=== PATIENT | female | born 1980 | race Caucasian/White ===

== ENCOUNTER 2016-03-18 08:39 | Emergency (ER) | payer OTHER ==
[2016-03-18] MEDS ORDERED: IBUPROFEN 800 MG TAB As Ordered ONE (09:21)
--- NOTE | 2016-03-18 10:27 | REP ---
Cervical spine series: Eight views. History: Trauma. Findings: Lateral views done in flexion/extension and neutral position demonstrate three old ossific densities in the posterior spinal ligaments dorsal to the spinous processes. No fracture or subluxation is seen. No instability noted on flexion/extension views. Vertebral body heights are preserved. Alignment is normal. There is discogenic calcification at the C5-6 disc level consistent with early degenerative disc disease. AP and open mouth odontoid views are unremarkable. Oblique radiographs demonstrate intact neural foramina bilaterally at each cervical level and normally aligned facets. Swimmer's lateral view shows no additional abnormality. Impression: No traumatic abnormality noted. Early degenerative disc changes at C5-6. CT scanning is more sensitive than plain radiography for fracture and is the preferred imaging modality in the adult trauma setting. Signed by Edin Alicia MD 03/18/2016 10:38 A
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
== END 2016-03-18 10:59 | disposition home or self-care (01) ==
LOC: M ED 08:39
DX: S13.4XXA Sprain of ligaments of cervical spine, initial encounter (principal); V48.5XXA Car driver injured in noncollision transport accident in traffic accident, initial encounter; Y92.410 Unspecified street and highway as the place of occurrence of the external cause; Y93.89 Activity, other specified; Y99.8 Other external cause status; E11.9 Type 2 diabetes mellitus without complications; I10 Essential (primary) hypertension; Z79.84 Long term (current) use of oral hypoglycemic drugs; Z79.899 Other long term (current) drug therapy

== ENCOUNTER → 2016-07-05 | Outpatient (CLI) | payer OTHER ==
[2016-07-05 12:52] LABS: BASO % 0.3 % (0.0-1.0); EOS # 0.2 K/mm3 (0.0-0.50); EOS % 3.1 % (0.0-3.0); LARGE UNSTAINED CELL # 0.2 K/mm3 (0.0-0.4); LARGE UNSTAINED CELL % 2.2 % (0.0-4.0); LYMPH # 2.5 K/mm3 (1.5-4.5); LYMPH % 28.1 % (24.0-44.0); MEAN CORPUSCULAR HEMOGLOBIN 29.1 pg (27.0-33.0); MEAN CORPUSCULAR HGB CONC 33.9 g/dl (32.0-36.5); MEAN CORPUSCULAR VOLUME 85.9 fl (80.0-96.0); MONO # 0.4 K/mm3 (0.0-0.8); MONO % 4.9 % (0.0-5.0); NEUTROPHILS % 61.3 % (36.0-66.0); PLATELET COUNT, AUTOMATED 285 k/mm3 (150-450); RED CELL DISTRIBUTION WIDTH 13.1 % (11.5-14.5); WHITE BLOOD COUNT 8.1 K/mm3 (4.0-10.0)
== END ==
LOC: M LAB 12:14
PROVIDERS: ATTEND Advanced Practice Midwife
DX: Z36 Encounter for antenatal screening of mother (principal); Z3A.00 Weeks of gestation of pregnancy not specified

== ENCOUNTER → 2016-07-19 | Outpatient (CLI) | payer OTHER ==
[2016-07-19 11:15] LABS: ALT/SGPT 22 U/L (12-78); AST/SGOT 6 U/L (15-37); BILIRUBIN,TOTAL 0.4 MG/DL (0.2-1.0); CREATININE FOR GFR 0.51 MG/DL (0.55-1.02); GLOMERULAR FILTRATION RATE > 60.0 (>60); URIC ACID 2.7 MG/DL (2.6-6.0)
== END ==
LOC: M LAB 09:39
PROVIDERS: ATTEND Advanced Practice Midwife
DX: O10.011 Pre-existing essential hypertension complicating pregnancy, first trimester (principal); Z36 Encounter for antenatal screening of mother; Z3A.00 Weeks of gestation of pregnancy not specified

== ENCOUNTER → 2016-08-03 | Outpatient (CLI) | payer OTHER | LOC: M SMT 10:54 | PROVIDERS: ATTEND Specialist | DX: O24.111 Pre-existing type 2 diabetes mellitus, in pregnancy, first trimester (principal); Z36 Encounter for antenatal screening of mother; Z3A.00 Weeks of gestation of pregnancy not specified ==

== ENCOUNTER → 2016-08-27 | Outpatient (REF) | payer OTHER | LOC: M LAB REF 11:33 | PROVIDERS: ATTEND Physician Assistant Medical | DX: R30.0 Dysuria (principal) ==

== ENCOUNTER → 2016-09-13 | Outpatient (CLI) | payer MEDICAID, OTHER ==
--- NOTE | 2016-09-13 11:11 | REP ---
OB ULTRASOUND: Real-time sonographic evaluation of the gravid uterus is performed. There is a single living intrauterine gestation with an estimated gestational age of 19 weeks 0 days based on the LMP with EDC 02/07/2017. Today's measurements indicate appropriate growth. Biometry and Growth: BPD 44 mm = 19 weeks 2 days, 57th percentile HC 163 mm = 19 weeks 0 days, 51st percentile AC 141 mm = 19 weeks 3 days, 61st percentile FL 31 mm = 19 weeks 4 days, 65th percentile HC/AC ratio 1.15 within normal range. Estimated weight 296 grams, 66th percentile. SEEN/GROSSLY UNREMARKABLE Lateral ventricles Yes Posterior fossa Yes Upper lip Yes Four-chamber heart Yes LVOT No RVOT No Stomach Yes Cord insertion Yes Three vessel cord Yes Kidneys Yes Bladder Yes Spine No Cervical length: The cervix is closed and measures 5.1 cm in length. heart rate: 160 beats per minute. position: Variable. Placenta: Anterior and grade 0 with no previa or abruption. Amniotic fluid: Within normal limits. Signed by Jed Myers MD 09/13/2016 01:27 P
== END ==
LOC: M SMT 09:38
PROVIDERS: ATTEND Specialist
DX: O24.111 Pre-existing type 2 diabetes mellitus, in pregnancy, first trimester (principal); Z36 Encounter for antenatal screening of mother; Z3A.19 19 weeks gestation of pregnancy

== ENCOUNTER → 2016-10-11 | Outpatient (CLI) | payer OTHER ==
--- NOTE | 2016-10-11 21:54 | REP ---
OB ULTRASOUND: Real-time sonographic evaluation of the gravid uterus is performed. There is a single intrauterine gestation with an estimated gestational age of 23 weeks, EDC 02/07/2017. Today's measurements indicate appropriate growth. BPD 58 mm = 23 weeks 5 days, 70th percentile HC 222 mm = 24 weeks 2 days, 76th percentile AC 180 mm = 22 weeks 6 days, 47th percentile FL 42 mm = 23 weeks 5 days, 7th percentile HC/AC ratio 1.23, is slightly above normal range of 1.03 to 1.22. Estimated weight 586 grams, 56th percentile. Cervix is closed and measures 5.9 cm in length. heart rate 153 beats per minute. SEEN/GROSSLY UNREMARKABLE Lateral ventricles yes Posterior fossa no Upper lip no Four-chamber heart no LVOT no RVOT no Stomach yes Cord insertion no Three vessel cord no Kidneys yes Bladder yes Spine yes position: Vertex. Placenta: Anterior and grade 1 with no previa or abruption. Amniotic fluid: Within normal limits. Signed by Jed Myers MD 10/12/2016 12:36 P
== END ==
LOC: M RAD 17:53
PROVIDERS: ATTEND Specialist
DX: Z36 Encounter for antenatal screening of mother (principal); Z3A.23 23 weeks gestation of pregnancy

== ENCOUNTER → 2016-11-10 | Outpatient (CLI) | payer OTHER ==
--- NOTE | 2016-11-10 19:25 | REP ---
Obstetric ultrasound for anatomy: Comparisons are 10/11/2016 and 09/13/2016. There is a single intrauterine gestation in a transverse lie with the head to the maternal left. There is movement and cardiac activity, the heart rate is 150 beats per minute. The placenta is anterior. There is no placenta previa or abruptio. Placenta is grade 1. Subjectively the amniotic fluid volume is normal. The amniotic fluid index is 18.8 (9.5 - 22.7). The cervix measures 5.2 cm length. Maternal adnexa and cul-de-sac are unremarkable. By today's ultrasound gestational age is 29 weeks 2 days with an SIDNEY of 01/24/2017. Based on the first ultrasound gestational age is 27 weeks 3 days and by LMP 27 weeks 2 days. weight is 1402 grams (3 pounds, 1 ounce). This is greater than the 97 percentile for 27 weeks 2 days. Umbilical artery Doppler assessment: SD ratio 2.83. Resistive index 0.65. Diastolic flow velocity 14.2 cm/sec. These values are in their normal ranges. The following anatomic structures are identified and are unremarkable: Cranium, choroid plexus, cavum septum pellucidum, cerebellum, posterior fossa, lungs, right ventricular outflow tract, diaphragm, stomach, cord insertion, kidneys, bladder, spine and upper lower extremities. Suboptimally demonstrated on the study today are the facial profile, four-chamber view of the heart and the left ventricular cardiac outflow tract and three-vessel cord. On 09/13/2016. The face, facial profile and upper lip are adequately demonstrated and unremarkable. On 09/13/2016. The four-chamber view of the heart was adequately demonstrated and unremarkable. On 09/13/2016. The three-vessel cord was adequately demonstrated are unremarkable. The left ventricular outflow tract is not optimally demonstrated in the study. A followup study dedicated to this structure might be considered. Signed by Jed Christianson MD 11/10/2016 07:17 P
== END ==
LOC: M RAD 17:04
PROVIDERS: ATTEND Specialist
DX: O24.12 Pre-existing type 2 diabetes mellitus, in childbirth (principal); E11.9 Type 2 diabetes mellitus without complications; Z3A.29 29 weeks gestation of pregnancy

== ENCOUNTER → 2016-11-16 | Outpatient (CLI) | payer OTHER ==
[2016-11-16 20:29] LABS: MEAN CORPUSCULAR HEMOGLOBIN 30.7 pg (27.0-33.0); MEAN CORPUSCULAR HGB CONC 35.9 g/dl (32.0-36.5); MEAN CORPUSCULAR VOLUME 85.4 fl (80.0-96.0); RED CELL DISTRIBUTION WIDTH 13.4 % (11.5-14.5); WHITE BLOOD COUNT 9.7 K/mm3 (4.0-10.0)
== END ==
LOC: M SMT 15:11
PROVIDERS: ATTEND Specialist
DX: O24.112 Pre-existing type 2 diabetes mellitus, in pregnancy, second trimester (principal)

== ENCOUNTER 2017-01-18 00:19 | Inpatient (IN) | payer OTHER ==
[~2017-01-18] VITALS: Ht 170.2 cm; Wt 142.0 kg
[2017-01-18] VITALS (72 sets, daily range): BP systolic 71–182; BP diastolic 43–90
[2017-01-18 01:54] LABS: MEAN CORPUSCULAR HEMOGLOBIN 28.5 pg (27.0-33.0); MEAN CORPUSCULAR HGB CONC 34.4 g/dl (32.0-36.5); MEAN CORPUSCULAR VOLUME 82.9 fl (80.0-96.0); PLATELET COUNT, AUTOMATED 247 10^3/uL (150-450); RED CELL DISTRIBUTION WIDTH 13.3 % (11.5-14.5); WHITE BLOOD COUNT 9.3 10^3/uL (4.0-10.0)
[2017-01-18] MEDS ORDERED: INSULIN HUMAN REGULAR 100 UNITS in NS 99 ML IV SCH ×5 (02:16→10:00)
[2017-01-18] MEDS ORDERED: PENICILLIN G POTASSIUM IV 5 MU in D5W MINI-BAG PLUS 100 ML IV STA (02:16)
[2017-01-18] MEDS ORDERED: LR 1,000 ML IV SCH (02:16)
[2017-01-18] MEDS ORDERED: LACTATED RINGER'S 1000 ML IV STA (02:16)
[2017-01-18] MEDS: NS 1,000 ML IV SCH ×3 (03:03→16:54)
[2017-01-18] MEDS ORDERED: miSOPROStol 50 MCG 1/2 TAB (S0191) SL ONE (03:15)
[2017-01-18] MEDS ORDERED: CALCIUM CARBONATE 500 MG CHEW U/D PO ONE (03:15)
[2017-01-18] MEDS ORDERED: ZYRT10CA PO (07:25)
[2017-01-18] MEDS ORDERED: PRENTAB9 PO (07:25)
[2017-01-18] MEDS ORDERED: INSUR SC (07:25)
[2017-01-18] MEDS ORDERED: SING10TA32 PO (07:25)
[2017-01-18] MEDS ORDERED: INSUN SC (07:25)
[2017-01-18] MEDS ORDERED: LABE20TAB PO (07:25)
[2017-01-18] MEDS ORDERED: miSOPROStol 50 MCG 1/2 TAB (S0191) PO ONE (08:00)
[2017-01-18] MEDS: PENICILLIN G POTASSIUM IV 2.5 MU in APPROPRIATE DILUENT 1 EA IV SCH ×4 (08:00→18:55)
[2017-01-18] MEDS: INSULIN IV RATE CHANGE DOCUMENTATION ML/HR XX SCH ×5 (08:31→18:32)
[2017-01-18] MEDS ORDERED: FENTANYL 2MCG/ML ROPIVACAINE 0.2% IN 0.9% NACL 200ML IVBAG As Ordered ONE (09:36)
[2017-01-18] MEDS ORDERED: ePHEDrine SULFATE 25 MG/5 ML(5MG/ML) SYRINGE IV PRN (11:00)
[2017-01-18] MEDS ORDERED: NALOXONE INJ 0.4 MG/1 ML VIAL (J2310) IV PRN (11:00)
[2017-01-18] MEDS ORDERED: ONDANSETRON 4MG/2ML VIAL (J2405) IV PRN ×2 (11:00→21:45)
[2017-01-18] MEDS ORDERED: REFRIGERATOR IV KEYS XX PRN (11:00)
[2017-01-18] MEDS ORDERED: EPIDURAL COMMENT XX SCH (11:00)
[2017-01-18] MEDS ORDERED: diphenhydrAMINE INJ 50MG/ML VIAL (J1200) IV PRN (11:00)
[2017-01-18] MEDS ORDERED: FENTANYL/ROPIVACAINE/NACL BAG 200 ML EPIDURAL SCH (11:00)
[2017-01-18] MEDS ORDERED: EPIDURAL/PCA KEYS XX PRN (11:00)
[2017-01-18] MEDS ORDERED: OXYTOCIN DRIP 30 UNITS in APPROPRIATE DILUENT 1 EA IV SCH (11:15)
[2017-01-18] MEDS: LABETALOL 200 MG TAB PO SCH (21:00)
[2017-01-18] MEDS ORDERED: RHOGAM 300 MCG (1500 IU) INJ (J2790) IM SCH (21:45)
[2017-01-18] MEDS ORDERED: METHYLERGONOVINE MALEATE 0.2 MG TAB PO PRN (21:45)
[2017-01-18] MEDS ORDERED: DOCUSATE SODIUM 100 MG CAP PO PRN (21:45)
[2017-01-18] MEDS ORDERED: DIBUCAINE 1% OINTMENT 30GM TOP PRN (21:45)
[2017-01-18] MEDS ORDERED: OXYTOCIN DRIP 30 UNITS in APPROPRIATE DILUENT 1 EA IV ONE (21:45)
[2017-01-18] MEDS ORDERED: MEASLES,MUMPS,RUBELLA VACCINE INJ (MMR-II) (90707) SC SCH (21:45)
[2017-01-19] MEDS: LABETALOL 200 MG TAB PO SCH ×3 (00:07→23:47)
[2017-01-19 02:00] VITALS: BP 103/53
[2017-01-19] MEDS: IBUPROFEN 800 MG TAB PO PRN ×3 (05:12→18:45)
[2017-01-19 06:00] VITALS: BP 97/55
[2017-01-19] MEDS: metFORMIN 850 MG TAB PO SCH ×2 (08:32→18:48)
[2017-01-19] MEDS: PRENATAL VITAMINS CHEWABLE TABLET PO SCH (08:32)
[2017-01-19] MEDS: MONTELUKAST 10 MG TAB PO SCH (08:32)
[2017-01-19 11:33] VITALS: BP 131/70
--- NOTE | 2017-01-19 11:35 | DN ---
DATE OF DELIVERY: 01/18/2017 PREDELIVERY DIAGNOSES: 37 weeks gestation, type 2 gestational diabetes. POSTDELIVERY DIAGNOSES: 37 weeks gestation, type 2 gestational diabetes. PROCEDURE: Spontaneous vaginal delivery. CAGE CASHIER: Claudio Fay MD ANESTHESIA: Epidural. ESTIMATED BLOOD LOSS: 300 mL. FINDINGS: 9 pound, 14 ounce female . scores of 7 and 9. DELIVERY SUMMARY: After a short second stage, the patient had spontaneous delivery of a 9 pound 14 ounce female infant with scores of 7 and 9, under epidural anesthesia. There was no nuchal cord. The shoulders delivered with ease. The infant was handed to the mother and cried spontaneously. The cord was doubly clamped and cut. Placenta delivered spontaneously and appeared to be intact. The patient received IV pitocin immediately after delivery of the placenta. There were no vaginal lacerations present. Sponge counts were correct.
[2017-01-19] MEDS: ACETAMINOPHEN 500 MG TAB PO PRN ×2 (11:58→18:48)
[2017-01-19 13:57] VITALS: BP 138/66
[2017-01-19] MEDS: MORPHINE 2 MG/ML 1ML SYRINGE IV PRN ×2 (14:19→16:23)
[2017-01-19 17:43] VITALS: BP 149/80
[2017-01-19 20:12] LABS: BLOOD UREA NITROGEN 10 MG/DL (7-18); CREATININE FOR GFR 0.58 MG/DL (0.55-1.02); GLOMERULAR FILTRATION RATE > 60.0 (>60)
[2017-01-19] MEDS ORDERED: PROHANCE 279.3MG/ML 15ML VIAL (A9576) As Ordered ONE (20:39)
[2017-01-19] MEDS ORDERED: PERCOCET 5MG/325MG TAB PO ONE (22:30)
[2017-01-19 22:54] VITALS: BP 140/71
--- NOTE | 2017-01-19 23:40 | REPUSA ---
CLINICAL HISTORY: Back pain. TECHNIQUE: Fast spin echo T2 and spin echo T1 sequences were obtained in axial and sagittal planes. FINDINGS: The visualized osseous elements are intact withCLINICAL HISTORY: Abdominal pain. TECHNIQUE: Multiple axial and coronal CT images were obtained through the abdomen and pelvis without administration of oral or IV contrast material. COMMENTS: The liver is of uniform attenuation without mass or defect. There is no intra or extrahepatic biliary ductal dilatation. The spleen is normal. The gallbladder is contracted. The pancreas is of normal c ontour and attenuation characteristics. There is no evidence of adrenal mass. The kidneys are normal in size, shape and configuration. No renal or ureteral calculi are identified. There is no hydroureter or hydronephrosis. There is no evidence for appendicitis. There is severe wall thickening noted involving all small benjie l segments compatible with enteritis. No evidence for small or large bowel obstruction. There is no e vidence of abdominal ascites or lymphadenopathy. There is no evidence of intrinsic or extrinsic bladder mass. There is no pelvic ascites or lymphadeno karsten. The uterus is bulky and enlarged compatible with recent . Images of the lung bases show no evidence of pleural or parenchymal mass. There are no pleural effusi ons. The bony structures are free of lytic or blastic lesions. IMPRESSION: Severe enteritis. Consider consultation with GI service. Thank you for your kind referral of this patient. no evidence of fracture or spondylolisthesis. The m arrow signals are within normal limits. There is straightening of normal lordotic curvature, compatib le with muscle spasm. The conus medullaris and cauda equina are within normal limits. There is evidence of mild multilevel disc dehydration. Evaluation of individual levels reveals the following: At L5-S1, broad based disk bulge is present. Canal and neural foramina remain patent. At L4-L5, broad based disk bulge is present. Canal and neural foramina remain patent. At L3-L4, there is no disk herniation or bulge. Canal and neural foramina remain patent. At L2-L3, there is no disk herniation or bulge. Canal and neural foramina remain patent. At L1-L2, there is no disk herniation or bulge. Canal and neural foramina remain patent. IMPRESSION: 1. Straightening of normal lordotic curvature, compatible with muscle spasm. 2. Broad based disk bulges at L4-L5 and L5-S1. Thank you for your kind referral of this patient.
[2017-01-20] MEDS: ACETAMINOPHEN 500 MG TAB PO PRN ×2 (02:00→08:14)
[2017-01-20] MEDS: IBUPROFEN 800 MG TAB PO PRN ×3 (02:01→10:14)
[2017-01-20 02:15] VITALS: BP 135/62
[2017-01-20 06:20] VITALS: BP 113/63
[2017-01-20 08:13] VITALS: BP 136/85
[2017-01-20] MEDS: LABETALOL 200 MG TAB PO SCH (08:13)
[2017-01-20] MEDS: PRENATAL VITAMINS CHEWABLE TABLET PO SCH (08:13)
[2017-01-20] MEDS ORDERED: IBUP-1022 PO (09:26)
[2017-01-20] MEDS ORDERED: TYLE325T5 PO (09:26)
[2017-01-20] MEDS ORDERED: GLUC850T PO (09:38)
[2017-01-20] MEDS: metFORMIN 850 MG TAB PO SCH (09:42)
[2017-01-20] MEDS: MONTELUKAST 10 MG TAB PO SCH (09:42)
[2017-01-20 10:31] VITALS: BP 136/66
== END 2017-01-20 10:45 | disposition home or self-care (01) | DRG 560 ==
LOC: M LDI 00:19 → M OBS 23:51
PROVIDERS: ADMIT Obstetrics & Gynecology; ATTEND Specialist
PROC: 10E0XZZ Delivery of Products of Conception, External Approach (ICD-10-PCS; principal; 2017-01-18)
PROC: 10907ZC Drainage of Amniotic Fluid, Therapeutic from Products of Conception, Via Natural or Artificial Opening (ICD-10-PCS; 2017-01-18)
PROC: 3E0P7GC Introduction of Other Therapeutic Substance into Female Reproductive, Via Natural or Artificial Opening (ICD-10-PCS; 2017-01-18)
DX: O24.32 Unspecified pre-existing diabetes mellitus in childbirth (principal); Z3A.37 37 weeks gestation of pregnancy; O10.02 Pre-existing essential hypertension complicating childbirth; O99.214 Obesity complicating childbirth; Z68.42 Body mass index [BMI] 45.0-49.9, adult; E66.9 Obesity, unspecified; Z37.0 Single live birth; Z79.4 Long term (current) use of insulin

== ENCOUNTER → 2017-02-06 | Outpatient (REF) | payer BC, OTHER ==
[~2017-02-06] MED LIST: GLUC850T PO; IBUP-1022 PO; INSUN SC; INSUR SC; LABE20TAB PO; PRENTAB9 PO; SING10TA32 PO; TYLE325T5 PO; ZYRT10CA PO
== END ==
LOC: M LAB REF 10:11
PROVIDERS: ATTEND Physician Assistant Medical
DX: J02.9 Acute pharyngitis, unspecified (principal)

== ENCOUNTER 2017-04-17 01:07 | Emergency (ER) | payer OTHER ==
[2017-04-17 05:04] LABS: INFLUENZA A AMPLIFICATION NEGATIVE (NEGATIVE); INFLUENZA B AMPLIFICATION NEGATIVE (NEGATIVE); RSV AMPLIFICATION POSITIVE (NEGATIVE)
== END 2017-04-17 06:14 | disposition home or self-care (01) ==
LOC: M ED 01:07
DX: R05 Cough (principal); B97.4 Respiratory syncytial virus as the cause of diseases classified elsewhere; E11.9 Type 2 diabetes mellitus without complications; I10 Essential (primary) hypertension; Z87.891 Personal history of nicotine dependence
CPT/HCPCS: 87631

== ENCOUNTER → 2017-07-27 | Outpatient (CLI) | payer OTHER | LOC: M EKG 11:41 | DX: Z01.818 Encounter for other preprocedural examination (principal); E11.9 Type 2 diabetes mellitus without complications; R03.0 Elevated blood-pressure reading, without diagnosis of hypertension; F41.9 Anxiety disorder, unspecified; F32.9 Major depressive disorder, single episode, unspecified; G47.30 Sleep apnea, unspecified | CPT/HCPCS: 93005 ==

== ENCOUNTER → 2017-07-27 | Outpatient (CLI) | payer OTHER ==
[2017-07-27 12:33] LABS: BASO % 0.4 % (0.0-1.0); EOS # 0.2 10^3/uL (0.0-0.50); EOS % 2.2 % (0.0-3.0); HEMATOCRIT 45.9 % (36.0-47.0); HEMOGLOBIN 15.9 g/dl (12.0-15.5); IMMATURE GRANULOCYTE % 0.4 % (0-3.0); LYMPH % 32.5 % (24.0-44.0); MEAN CORPUSCULAR HEMOGLOBIN 29.3 pg (27.0-33.0); MEAN CORPUSCULAR HGB CONC 34.6 g/dl (32.0-36.5); MEAN CORPUSCULAR VOLUME 84.7 fl (80.0-96.0); MONO # 0.6 10^3/uL (0.0-0.8); NEUTROPHILS # 5.4 10^3/uL (1.8-7.7); NEUTROPHILS % 58.5 % (36.0-66.0); PLATELET COUNT, AUTOMATED 289 10^3/uL (150-450); RED BLOOD COUNT 5.42 10^6/uL (4.00-5.40); WHITE BLOOD COUNT 9.2 10^3/uL (4.0-10.0)
[2017-07-27 12:48] LABS: ESTIMATED AVERAGE GLUCOSE 137 MG/DL (60-110); HEMOGLOBIN A1c 6.4 %
[2017-07-27 12:57] LABS: ALBUMIN 3.6 GM/DL (3.2-5.2); ALBUMIN/GLOBULIN RATIO 0.95 (1.00-1.93); ALKALINE PHOSPHATASE 85 U/L (45-117); ALT/SGPT 21 U/L (12-78); ANION GAP 7 MEQ/L (8-16); AST/SGOT 12 U/L (7-37); BILIRUBIN,TOTAL 0.5 MG/DL (0.2-1.0); BLOOD UREA NITROGEN 10 MG/DL (7-18); CALCIUM LEVEL 8.9 MG/DL (8.5-10.1); CARBON DIOXIDE LEVEL 29 MEQ/L (21-32); CHLORIDE LEVEL 102 MEQ/L (98-107); CREATININE FOR GFR 0.77 MG/DL (0.55-1.30); FREE T4 1.12 NG/DL (0.76-1.46); GLOMERULAR FILTRATION RATE > 60.0 (>60); GLUCOSE, FASTING 197 MG/DL (70-100); POTASSIUM SERUM 3.6 MEQ/L (3.5-5.1); SODIUM LEVEL 138 MEQ/L (136-145); TOTAL PROTEIN 7.4 GM/DL (6.4-8.2)
== END ==
LOC: M LAB 11:36
DX: Z51.81 Encounter for therapeutic drug level monitoring (principal); Z79.899 Other long term (current) drug therapy; E11.9 Type 2 diabetes mellitus without complications; E66.3 Overweight; E55.9 Vitamin D deficiency, unspecified
CPT/HCPCS: 84443

== ENCOUNTER 2019-02-02 08:57 | Day surgery (SDC) | payer OTHER ==
[~2019-02-02] VITALS: Ht 170.2 cm; Wt 134.3 kg
[~2019-02-02 08:57] MED LIST changes: +ALOG25TA PO; +BIOT10008 PO; +JARD1TAB3 PO; +LEXA1TAB2 PO; +LISI20TA19 PO; +METF500T13 PO; +MICR1TAB16 PO; +OXYC1TAB23 PO; +TYLE500T78 PO; +WELL100T2 PO
[2019-02-02] MEDS ORDERED: TRUL10IN SC (09:04)
[2019-02-02] MEDS ORDERED: BUPR150T5 PO (09:04)
[2019-02-02] MEDS ORDERED: BRIM1OPD OU (09:04)
[2019-02-02] MEDS ORDERED: MORPHINE 4 MG/ML 1ML VIAL/SYRINGE (J2270) IV ONE (10:00)
[2019-02-02] MEDS ORDERED: ONDANSETRON 4MG/2ML VIAL (J2405) IV ONE (10:00)
[2019-02-02] MEDS ORDERED: NS 1,000 ML IV ONE (10:00)
[2019-02-02 10:02] LABS: BASO % 0.5 % (0.0-1.0); EOS # 0.1 10^3/uL (0.0-0.5); EOS % 1.5 % (0.0-3.0); HEMATOCRIT 44.4 % (36.0-47.0); HEMOGLOBIN 14.9 g/dl (12.0-15.5); LYMPH # 1.7 10^3/uL (1.5-5.0); LYMPH % 19.8 % (24.0-44.0); MEAN CORPUSCULAR HEMOGLOBIN 28.3 pg (27.0-33.0); MEAN CORPUSCULAR HGB CONC 33.6 g/dl (32.0-36.5); MEAN CORPUSCULAR VOLUME 84.3 fl (80.0-96.0); MONO # 0.5 10^3/uL (0.0-0.8); MONO % 5.5 % (0.0-5.0); NEUTROPHILS # 6.3 10^3/uL (1.5-8.5); NEUTROPHILS % 72.2 % (36.0-66.0); PLATELET COUNT, AUTOMATED 254 10^3/uL (150-450); RED BLOOD COUNT 5.27 10^6/uL (4.00-5.40); WHITE BLOOD COUNT 8.8 10^3/uL (4.0-10.0)
[2019-02-02 10:30] LABS: ALBUMIN 3.8 GM/DL (3.2-5.2); ALT/SGPT 37 U/L (12-78); AMYLASE 24 U/L (25-115); BILIRUBIN,DIRECT 0.1 MG/DL (0.0-0.2); BILIRUBIN,TOTAL 0.6 MG/DL (0.2-1.0); BLOOD UREA NITROGEN 11 MG/DL (7-18); CALCIUM LEVEL 9.5 MG/DL (8.5-10.1); CARBON DIOXIDE LEVEL 28 MEQ/L (21-32); CHLORIDE LEVEL 100 MEQ/L (98-107); CREATININE FOR GFR 0.79 MG/DL (0.55-1.30); GLOMERULAR FILTRATION RATE > 60.0 (>58); GLUCOSE, FASTING 254 MG/DL (70-100); LIPASE 104 U/L (73-393); POTASSIUM SERUM 4.2 MEQ/L (3.5-5.1); SODIUM LEVEL 135 MEQ/L (136-145)
--- NOTE | 2019-02-02 11:03 | REP ---
Clinical: Acute right upper quadrant abdominal pain. Technique: Myers scale ultrasound using curved array transducer. Findings: The liver demonstrates diffuse fatty infiltration with limited evaluation. A 2 cm gallstones is lodged at the gallbladder neck and may be causing biliary colic. No wall thickening or pericholecystic fluid and no biliary ductal dilatation is appreciated. The common bile duct measures 6.2 mm diameter. The right kidney is normal in reniform shape without hydronephrosis and measures 11.1 x 6.5 x 5.0 cm. No ascites. Visualized portions of the abdominal aorta normal. Impression: 1.. A 2 cm gallstones is lodged at the gallbladder neck and may be causing biliary colic. 2. Fatty liver. Electronically Signed by Robert Miles MD 02/02/2019 10:55 A
[2019-02-02] MEDS ORDERED: MORPHINE 2 MG/ML 1ML VIAL (J2270) IV ONE (11:15)
[2019-02-02 11:43] LABS: APPEARANCE, URINE CLEAR (CLEAR); BACTERIA, URINE AUTO NEGATIVE (NEGATIVE); BILIRUBIN, URINE AUTO NEGATIVE (NEGATIVE); BLOOD, URINE BLOOD NEGATIVE (NEGATIVE); COLOR, URINE YELLOW (YELLOW); GLUCOSE, URINE (UA) AUTO 3+ mg/dL (NEGATIVE); KETONE, URINE AUTO TRACE mg/dL (NEGATIVE); LEUKOCYTE ESTERASE, URINE AUTO TRACE (NEGATIVE); MUCUS, URINE SMALL (NEGATIVE); NITRITE, URINE AUTO NEGATIVE (NEGATIVE); PROTEIN, URINE AUTO NEGATIVE (NEGATIVE); RBC, URINE AUTO 1 /HPF (0-3); SPECIFIC GRAVITY URINE AUTO 1.017 (1.002-1.035); SQUAMOUS EPITHELIAL CELL UR AU 2 /HPF (0-6); UROBILINOGEN, URINE AUTO 0.2 mg/dL (0.0-2.0); WBC, URINE AUTO 5 /HPF (0-3)
[2019-02-02] MEDS ORDERED: LISI20TA20 PO (11:50)
[2019-02-02] MEDS ORDERED: METF-791 PO (11:50)
[2019-02-02] MEDS ORDERED: CETI10TA4 PO (11:50)
[2019-02-02] MEDS ORDERED: ACET500T15 PO (11:50)
[2019-02-02] MEDS ORDERED: MORPHINE 2 MG/ML 1ML VIAL (J2270) IV PRN (14:45)
[2019-02-02] MEDS ORDERED: KETOROLAC 30 MG/ML VIAL (J1885) IV PRN (14:45)
[2019-02-02] MEDS ORDERED: ONDANSETRON 4MG/2ML VIAL (J2405) IV PRN ×2 (14:45→23:30)
[2019-02-02] MEDS: LR 1,000 ML IV SCH (16:30)
[2019-02-02] MEDS: AMPICILLIN SOD/SULBACTAM SOD 3 GM in D5W MINI-BAG PLUS 100 ML IV SCH ×2 (16:31→21:00)
[2019-02-02 20:00] VITALS: BP 140/82
[2019-02-02] MEDS ORDERED: LIDOCAINE 2% INJ 100 MG/5 ML SDV (FOR ANES.) As Ordered ONE (20:31)
[2019-02-02] MEDS ORDERED: ROCURONIUM BROMIDE 50 MG/5 ML VIAL As Ordered ONE ×2 (20:31→21:21)
[2019-02-02] MEDS ORDERED: PROPOFOL 200 MG/20 ML VIAL As Ordered ONE (20:31)
[2019-02-02] MEDS ORDERED: ONDANSETRON 4MG/2ML VIAL (J2405) As Ordered ONE ×2 (20:31→23:24)
[2019-02-02] MEDS ORDERED: dexameTHASONE 4 MG/ML 1ML VIAL (J1100) As Ordered ONE (20:31)
[2019-02-02] MEDS ORDERED: KETOROLAC 60 MG/2 ML VIAL (J1885) As Ordered ONE (20:31)
[2019-02-02] MEDS ORDERED: fentaNYL 250 MCG/5 ML INJECTION (J3010) As Ordered ONE (20:35)
[2019-02-02] MEDS ORDERED: MIDAZOLAM INJ 2 MG/2 ML VIAL (J2250) As Ordered ONE (20:36)
[2019-02-02] MEDS ORDERED: HumaLOG INSULIN (NovoLOG) PER UNIT SC SCH (21:00)
[2019-02-02] MEDS ORDERED: BUPIVACAINE HCL 0.25% 30 ML VIAL As Ordered ONE (21:01)
[2019-02-02] MEDS ORDERED: AMPICILLIN 1 GM VIAL As Ordered ONE (21:16)
[2019-02-02] MEDS ORDERED: UNASYN 1.5 GM VIAL As Ordered ONE (21:18)
[2019-02-02] MEDS ORDERED: ACETAMINOPHEN 1000MG 100ML IV BTL (OFIRMEV) (J0131 PER 10MG) As Ordered ONE (21:18)
[2019-02-02] MEDS ORDERED: SUGAMMADEX SODIUM 500 MG/5 ML VIAL (BRIDION) As Ordered ONE (21:26)
[2019-02-02] MEDS ORDERED: fentaNYL 100 MCG/2 ML INJECTION (J3010) As Ordered ONE ×2 (21:41→23:25)
[2019-02-02] MEDS ORDERED: LABETALOL HCL 100 MG/20 ML VIAL As Ordered ONE (21:42)
[2019-02-02] MEDS ORDERED: ACETAMINOPHEN TAB 650MG DOSE (2X325MG) PO PRN (23:15)
[2019-02-02] MEDS ORDERED: NORCO, ANEXSIA 5/325MG TABLET (HYDROcodone/ACETAMINOPHEN) PO PRN (23:15)
[2019-02-02] MEDS ORDERED: IBUPROFEN 600 MG TAB PO PRN (23:15)
[2019-02-02] MEDS ORDERED: PERCOCET 5MG/325MG TAB As Ordered ONE (23:25)
[2019-02-02] MEDS ORDERED: fentaNYL 100 MCG/2 ML INJECTION (J3010) IV PRN (23:30)
[2019-02-02] MEDS ORDERED: LR 1,000 ML IV SCH (23:30)
[2019-02-02] MEDS ORDERED: MORPHINE 10 MG/ML 1ML VIAL (J2270) IV PRN (23:30)
[2019-02-02] MEDS: PERCOCET 5MG/325MG TAB PO PRN (23:31)
[2019-02-03] VITALS (8 sets, daily range): BP systolic 118–160; BP diastolic 69–99
[2019-02-03] MEDS ORDERED: HumaLOG INSULIN (NovoLOG) PER UNIT As Ordered ONE ×2 (00:02→00:16)
[2019-02-03] MEDS ORDERED: PERCOCET 5MG/325MG TAB As Ordered ONE (00:07)
[2019-02-03] MEDS: HumaLOG INSULIN (NovoLOG) PER UNIT SC ONE ×2 (00:13→00:15)
[2019-02-03] MEDS: PERCOCET 5MG/325MG TAB PO PRN (00:20)
[2019-02-03] MEDS: LR 1,000 ML IV SCH ×2 (00:50→12:10)
[2019-02-03] MEDS: AMPICILLIN SOD/SULBACTAM SOD 3 GM in D5W MINI-BAG PLUS 100 ML IV SCH ×2 (03:09→09:57)
[2019-02-03 08:12] LABS: BASO % 0.1 % (0.0-1.0); HEMATOCRIT 40.5 % (36.0-47.0); HEMOGLOBIN 13.5 g/dl (12.0-15.5); LYMPH % 11.3 % (24.0-44.0); MEAN CORPUSCULAR HEMOGLOBIN 28.1 pg (27.0-33.0); MEAN CORPUSCULAR HGB CONC 33.3 g/dl (32.0-36.5); MEAN CORPUSCULAR VOLUME 84.4 fl (80.0-96.0); MONO # 0.2 10^3/uL (0.0-0.8); MONO % 1.7 % (0.0-5.0); NEUTROPHILS # 7.5 10^3/uL (1.5-8.5); NEUTROPHILS % 86.6 % (36.0-66.0); PLATELET COUNT, AUTOMATED 221 10^3/uL (150-450); WHITE BLOOD COUNT 8.7 10^3/uL (4.0-10.0)
[2019-02-03 08:40] LABS: ALT/SGPT 48 U/L (12-78); BILIRUBIN,TOTAL 0.6 MG/DL (0.2-1.0); BLOOD UREA NITROGEN 12 MG/DL (7-18); CALCIUM LEVEL 8.4 MG/DL (8.5-10.1); CARBON DIOXIDE LEVEL 29 MEQ/L (21-32); CHLORIDE LEVEL 99 MEQ/L (98-107); CREATININE FOR GFR 0.75 MG/DL (0.55-1.30); GLOMERULAR FILTRATION RATE > 60.0 (>58); GLUCOSE, FASTING 255 MG/DL (70-100); POTASSIUM SERUM 4.5 MEQ/L (3.5-5.1); SODIUM LEVEL 133 MEQ/L (136-145)
[2019-02-03] MEDS: HumaLOG INSULIN (NovoLOG) PER UNIT SC SCH ×2 (09:58→12:10)
[2019-02-03] MEDS ORDERED: HYDR-4571 PO (12:08)
--- NOTE | 2019-02-03 21:21 | IPN ---
DATE: 02/03/2019 HISTORY: The patient is now postoperative day #1 from a laparoscopic cholecystectomy for cholelithiasis with acute cholecystitis. She had a markedly inflamed gallbladder with a large stone stuck in the distal body and neck of the gallbladder. She is doing very well today and has tolerated clear liquids and been advanced to a regular diet. VITAL SIGNS: She has been afebrile since surgery with a pulse in the 80s and a normal blood pressure. Intake and output show that yesterday she had 1160 recorded in. This morning so far she has had about a liter of oral intake with 800 of urine output. PHYSICAL EXAMINATION: The patient is sitting up on the side of the bed looking fairly comfortable. She is breathing easily. Examination of the abdomen shows that her trocar site dressings are dry and intact. She has bowel sounds present and the abdomen is soft and without any undue tenderness. LABORATORY STUDIES: CBC today shows a white count of 9, hemoglobin of 14, hematocrit of 40 and platelet count of 221,000. Differential count shows 87% neutrophils, 11% lymphocytes and 2% monocytes. Chemistry profile shows a sodium of 133, potassium 4.5, chloride 99, CO2 of 29, BUN of 12, creatinine 0.8, and a glucose of 255. Liver function tests are normal with the exception of minimal elevation of the AST to 64. IMPRESSION: The patient is doing very well 1 day postoperative from laparoscopic cholecystectomy for acute cholecystitis. PLAN: The patient will be discharged home today and she is in agreement with this plan. She can take a diet as tolerated. She can shower 24 hours after the procedure and swim or bathe 5 days after surgery. She should followup in the office in approximately 10-14 days. I will send in a prescription for a few Aurora tablets that she can take as needed for moderate to severe pain but she was encouraged to use [id number] mild remedies as much as possible. She should call the office for any problems. KIM
--- NOTE | 2019-02-05 10:38 | RO ---
DATE OF PROCEDURE: 02/02/2019 PREOPERATIVE DIAGNOSIS: Cholelithiasis with possible early acute cholecystitis. POSTOPERATIVE DIAGNOSIS: Acute cholecystitis with cholelithiasis. PROCEDURE PERFORMED: Laparoscopic cholecystectomy. SURGEON: Dr. Thomas Suazo EXPANSION ENVELOPE MAKER HAND: ANESTHESIA: General. INDICATIONS FOR PROCEDURE: The patient is a 38-year-old woman who presented to the emergency department on February 02 with a 2-day history of somewhat waxing and waning upper abdominal pain particularly in the right subcostal area. There was some radiation of the pain around the side and to the back. Ultrasound confirmed a gallstone lodged in the neck of the gallbladder. When I saw her, she had been having persistent pain and tenderness for 6-7 hours and it was felt that she was likely developing acute cholecystitis. She was admitted and started on antibiotics and is now for a laparoscopic cholecystectomy. OPERATIVE PROCEDURE: The patient was brought to the operating room and placed on the table in a supine position. She was placed under general endotracheal anesthesia. The patient's abdomen was prepped and draped in a sterile fashion. 0.25% Marcaine was infiltrated at each of the trocar sites as needed. A short supraumbilical midline incision was made. A Veress needle was inserted and after a positive hanging drop test the abdomen was inflated with carbon dioxide gas. The Veress needle was removed. A small longitudinal incision was made in the midline of the supraumbilical fascia and an 11 mm trocar was placed without difficulty. The laparoscope was placed. Initial examination showed a normal-appearing liver. A portion of the stomach was seen. The abundant omentum obscured the small and large bowel. The very tip of the fundus was identified and this appeared to be quite hyperemic. The patient was tilted slightly to a reverse Trendelenburg position and rolled slightly to the left. Two 5 mm trocars were placed in the right upper quadrant and a third 5 mm trocar was placed in the left upper quadrant. Graspers were inserted. The gallbladder was found to be quite inflamed. It was hyperemic and the wall was edematous. There was a thin layer of covering fibrofatty tissue which was densely adherent. The omentum was peeled away using the electrocautery. The gallbladder was tensely distended. It was possible to grasp it partially, but ultimately I elected to aspirate this with an aspirating needle and a large amount of watery light bilious fluid was removed. The gallbladder wall was quite thickened and edematous. Dissection was begun in the area of the gallbladder neck. It was noted that she had a single large stone filling the distal body and neck of the gallbladder which made dissection slightly more difficult. The pericholecystic tissues were gradually peeled away using a combination of blunt and cautery dissection. The cholecystic artery was identified and this was clipped and divided. With further dissection, the cystic duct was clearly identified and dissected free and this was doubly clipped and divided. The gallbladder was then dissected away from the gallbladder bed using cautery dissection. The tissues of the gallbladder bed were quite thickened and edematous. The gallbladder was dissected free and the gallbladder was not perforated in the course of dissection. The gallbladder was placed in an Endopouch. A small bleeding point near the area of the fundus in the gallbladder bed was controlled with the cautery. The right upper quadrant was irrigated and inspected and there was no evidence of bleeding or bile leak. The patient was returned to a flat position. The abdomen was deflated and the trocars were removed. The gallbladder was recovered through the supraumbilical site. It was necessary to extend the skin and fascial incisions slightly to allow passage of the large stone. The gallbladder and contents were sent for permanent pathology. The fascia was closed along the midline with interrupted simple sutures of 1-0 Vicryl. The wound was irrigated and the subcutaneous tissues approximated with 2-0 Vicryl. The skin incisions were all closed with buried 4-0 Vicryl and Steri-Strips. Some additional 0.25% Marcaine was infiltrated at the supraumbilical site. Light dressings were applied. The patient tolerated the procedure well without apparent complication. She was awakened in the operating room, extubated and moved to the recovery room in stable condition.
== END 2019-02-03 13:37 | disposition home or self-care (01) ==
LOC: M ED 08:57 → M SDC 08:58 → M MSPAV 15:35 → M SDC 02-03 13:37
PROVIDERS: ATTEND Surgery
DX: K80.10 Calculus of gallbladder with chronic cholecystitis without obstruction (principal); E11.9 Type 2 diabetes mellitus without complications; I10 Essential (primary) hypertension; G47.30 Sleep apnea, unspecified; E66.01 Morbid (severe) obesity due to excess calories; F41.9 Anxiety disorder, unspecified; F32.9 Major depressive disorder, single episode, unspecified; Z79.84 Long term (current) use of oral hypoglycemic drugs; Z79.899 Other long term (current) drug therapy
CPT/HCPCS: 36415; 47562; 76705; 80048; 80053; 80076; 81001; 82150; 83690; 85025; 88304; 96361; 96365; 96366; 96375; 96376; 99284; J0131; J1100; J1885; J2250; J2270; J2405; J3010

== ENCOUNTER → 2020-04-07 | Outpatient (REF) | payer MEDICAID, OTHER ==
[~2020-04-07] MED LIST changes: +ACET500T15 PO; +BRIM1OPD OU; +BUPR150T5 PO; +CETI10TA4 PO; +HYDR-4571 PO; -LISI20TA19 PO; +LISI20TA20 PO; +LISI20TA35 PO; +METF-838 PO; +TRUL10IN SC
== END ==
LOC: M SFHCWAGY 13:25
PROVIDERS: ATTEND Specialist
DX: Z01.419 Encounter for gynecological examination (general) (routine) without abnormal findings (principal); Z12.4 Encounter for screening for malignant neoplasm of cervix; Z77.9 Other contact with and (suspected) exposures hazardous to health

== ENCOUNTER → 2020-04-21 | Outpatient (CLI) | payer OTHER ==
--- NOTE | 2020-04-21 16:49 | REPMRS ---
Patient History The patient states she had a clinical breast exam in 03/2020 Baseline Mammogram Family history of pancreatic cancer at age 50 or over in paternal grandfather. Digital Woman Screen Mammo: April 21, 2020 - Exam #: [id number] Bilateral CC and MLO view(s) were taken. Technologist: Cassandra Ling, Technologist FINDINGS: There are scattered fibroglandular densities. The Volpara volumetric breast density category is: B. There is no evidence of dominant mass, architectural distortion, or grouped microcalcification typical of malignancy. 3-D tomosynthesis shows no additional findings. Assessment: BI-RADS/ACR category 1 mammogram. Negative Mammogram. Recommendation Routine screening mammogram of both breasts in 1 year (for women over age 40). This patient's [facility] Lifetime Breast Cancer RIsk is estimated at 12.4 %. This mammogram was interpreted with the aid of an FDA-approved computer-aided dectection system. Electronically Signed By: Abhijit Alicia MD 04/21/20 [id number]
== END ==
LOC: M WHC 11:57
PROVIDERS: ATTEND Specialist
DX: Z12.31 Encounter for screening mammogram for malignant neoplasm of breast (principal)

== ENCOUNTER → 2021-04-23 | Outpatient (REF) | payer OTHER ==
[~2021-04-23] MED LIST changes: -LISI20TA20 PO; +LISI20TA37 PO
== END ==
LOC: M PLALAB 15:12
PROVIDERS: ATTEND Specialist
DX: Z53.9 Procedure and treatment not carried out, unspecified reason (principal)

== ENCOUNTER → 2021-06-24 | Outpatient (CLI) | payer OTHER ==
[~2021-06-24] MED LIST changes: +BUPR-71 PO; -BUPR150T5 PO
[2021-06-24 17:55] LABS: THYROID STIMULATING HORMONE 2.92 uIU/ML (0.358-3.740)
[2021-06-24 17:56] LABS: PROLACTIN 5.3 NG/ML
[2021-06-24 17:57] LABS: FOLLICLE STIMULATING HORMONE 9.2 mIU/mL
== END ==
LOC: M PLALAB 15:30
PROVIDERS: ATTEND Specialist
DX: Z01.419 Encounter for gynecological examination (general) (routine) without abnormal findings (principal); N91.2 Amenorrhea, unspecified

== ENCOUNTER → 2021-09-08 | Outpatient (CLI) | payer OTHER | LOC: M WHC 11:38 | PROVIDERS: ATTEND Specialist | DX: Z12.31 Encounter for screening mammogram for malignant neoplasm of breast (principal) ==

== ENCOUNTER 2021-10-28 21:55 | Emergency (ER) | payer OTHER ==
[~2021-10-28] VITALS: Ht 170.2 cm; Wt 129.7 kg
[2021-10-28 23:04] LABS: BASO % 0.4 % (0.0-1.0); EOS # 0.2 10^3/uL (0.0-0.5); EOS % 1.8 % (0.0-3.0); HEMATOCRIT 41.5 % (36.0-47.0); HEMOGLOBIN 14.4 g/dl (12.0-15.5); LYMPH # 3.5 10^3/uL (1.5-5.0); LYMPH % 33.7 % (24.0-44.0); MEAN CORPUSCULAR HEMOGLOBIN 28.6 pg (27.0-33.0); MEAN CORPUSCULAR HGB CONC 34.7 g/dl (32.0-36.5); MEAN CORPUSCULAR VOLUME 82.5 fl (80.0-96.0); MONO # 0.6 10^3/uL (0.0-0.8); MONO % 6.1 % (2.0-8.0); NEUTROPHILS % 57.5 % (36.0-66.0); PLATELET COUNT, AUTOMATED 267 10^3/uL (150-450); RED BLOOD COUNT 5.03 10^6/uL (4.00-5.40); WHITE BLOOD COUNT 10.4 10^3/uL (4.0-10.0)
[2021-10-28 23:39] LABS: HCG, SERUM QUALITATIVE NEGATIVE (NEGATIVE)
[2021-10-28 23:46] LABS: ALBUMIN 3.4 GM/DL (3.2-5.2); ALT/SGPT 24 U/L (12-78); BILIRUBIN,DIRECT 0.1 MG/DL (0.0-0.2); BILIRUBIN,TOTAL 0.5 MG/DL (0.2-1.0); BLOOD UREA NITROGEN 11 MG/DL (7-18); CALCIUM LEVEL 9.1 MG/DL (8.5-10.1); CARBON DIOXIDE LEVEL 28 MEQ/L (21-32); CHLORIDE LEVEL 99 MEQ/L (98-107); CREATININE FOR GFR 0.77 MG/DL (0.55-1.30); GLOMERULAR FILTRATION RATE > 60.0 (>58); GLUCOSE, FASTING 247 MG/DL (70-100); LIPASE 87 U/L (73-393); POTASSIUM SERUM 3.5 MEQ/L (3.5-5.1); SODIUM LEVEL 134 MEQ/L (136-145); TOTAL PROTEIN 7.3 GM/DL (6.4-8.2)
[2021-10-29] MEDS ORDERED: KETOROLAC 30 MG/ML 1ML VIAL IV ONE (01:40)
[2021-10-29 02:06] VITALS: BP 147/85
== END 2021-10-29 02:14 | disposition home or self-care (01) ==
LOC: M ED 21:55
DX: N83.01 Follicular cyst of right ovary (principal); E11.9 Type 2 diabetes mellitus without complications; I10 Essential (primary) hypertension; F32.A Depression, unspecified; F41.9 Anxiety disorder, unspecified
CPT/HCPCS: 76830; 76856; 80048; 80076; 81000; 81015; 83690; 84703; 85025; 87086; 93976; 96374; 99284; J1885

== ENCOUNTER → 2022-08-25 | Outpatient (REF) | payer OTHER ==
[~2022-08-25] MED LIST changes: -MICR1TAB16 PO; +MONT-5 PO; +NORE1TAB86 PO; -SING10TA32 PO
[2022-08-25 18:32] LABS: ALBUMIN 3.7 G/DL (3.2-5.2); ALKALINE PHOSPHATASE 73 U/L (46-116); ALT/SGPT 26 U/L (7.0-40); AST/SGOT 14 U/L (<34); BILIRUBIN,TOTAL 0.7 MG/DL (0.3-1.2); BLOOD UREA NITROGEN 11 MG/DL (9-23); CALCIUM LEVEL 8.8 MG/DL (8.5-10.1); CARBON DIOXIDE LEVEL 26 MMOL/L (20-31); CHLORIDE LEVEL 103 MMOL/L (98-107); CHOLESTEROL LEVEL 181 MG/DL (<200); CHOLESTEROL RISK RATIO 3.07 (<5); CREATININE FOR GFR 0.49 MG/DL (0.55-1.30); GLOMERULAR FILTRATION RATE > 60.0 (>58); GLUCOSE, FASTING 199 MG/DL (60-100); HDL CHOLESTEROL 58.8 MG/DL (>40); NON-HDL-C 122.2 MG/DL; POTASSIUM SERUM 4.4 MMOL/L (3.5-5.1); SODIUM LEVEL 136 MMOL/L (136-145); TOTAL PROTEIN 6.8 G/DL (5.7-8.2); TRIGLYCERIDES LEVEL 171 MG/DL (<150)
[2022-08-25 18:33] LABS: THYROID STIMULATING HORMONE 2.118 uIU/ML (0.55-4.78)
[2022-08-25 18:38] LABS: BASO % 0.4 % (0.0-1.0); EOS # 0.2 10^3/uL (0.0-0.5); HEMOGLOBIN 14.8 g/dl (12.0-15.5); LYMPH # 2.4 10^3/uL (1.5-5.0); LYMPH % 31.4 % (24.0-44.0); MEAN CORPUSCULAR HEMOGLOBIN 28.5 pg (27.0-33.0); MEAN CORPUSCULAR HGB CONC 33.6 g/dl (32.0-36.5); MEAN CORPUSCULAR VOLUME 84.8 fl (80.0-96.0); MONO # 0.6 10^3/uL (0.0-0.8); MONO % 7.3 % (2.0-8.0); NEUTROPHILS # 4.5 10^3/uL (1.5-8.5); NEUTROPHILS % 58.6 % (36.0-66.0); PLATELET COUNT, AUTOMATED 239 10^3/uL (150-450); RED BLOOD COUNT 5.19 10^6/uL (4.00-5.40); WHITE BLOOD COUNT 7.6 10^3/uL (4.0-10.0)
[2022-08-25 19:43] LABS: HEMOGLOBIN A1c 7.2 % (4.0-6.0)
== END ==
LOC: M LAB REF 16:29
PROVIDERS: ATTEND Pediatrics
DX: E11.69 Type 2 diabetes mellitus with other specified complication (principal); E55.9 Vitamin D deficiency, unspecified

== ENCOUNTER → 2022-09-21 | Outpatient (REF) | payer OTHER | LOC: M SFHCWAGY 13:06 | PROVIDERS: ATTEND Specialist | DX: Z12.4 Encounter for screening for malignant neoplasm of cervix (principal) ==

== ENCOUNTER → 2022-10-14 | Outpatient (CLI) | payer OTHER | LOC: M RAD 10:48 | PROVIDERS: ATTEND Pediatrics | DX: E04.9 Nontoxic goiter, unspecified (principal) ==

== ENCOUNTER → 2023-04-15 | Outpatient (REF) | payer OTHER ==
[2023-04-15 18:40] LABS: ALBUMIN 3.5 G/DL (3.2-5.2); ALKALINE PHOSPHATASE 74 U/L (46-116); ALT/SGPT 16 U/L (7.0-40); AST/SGOT 9 U/L (<34); BILIRUBIN,TOTAL 0.4 MG/DL (0.3-1.2); BLOOD UREA NITROGEN 11 MG/DL (9-23); CALCIUM LEVEL 9.5 MG/DL (8.5-10.1); CARBON DIOXIDE LEVEL 29 MMOL/L (20-31); CHLORIDE LEVEL 100 MMOL/L (98-107); CHOLESTEROL LEVEL 215 MG/DL (<200); CHOLESTEROL RISK RATIO 3.57 (<5); CREATININE FOR GFR 0.54 MG/DL (0.55-1.30); GLOMERULAR FILTRATION RATE > 60.0 (>58); GLUCOSE, FASTING 164 MG/DL (60-100); HDL CHOLESTEROL 60.2 MG/DL (>40); HEMOGLOBIN A1c 7.2 % (4.0-6.0); LDL CHOLESTEROL 93.8 MG/DL (<100); NON-HDL-C 154.8 MG/DL; SODIUM LEVEL 136 MMOL/L (136-145); TRIGLYCERIDES LEVEL 305 MG/DL (<150)
== END ==
LOC: M LAB REF 17:43
PROVIDERS: ATTEND Pediatrics
DX: E11.69 Type 2 diabetes mellitus with other specified complication (principal)

== ENCOUNTER 2023-05-05 08:55 | Emergency (ER) | payer OTHER ==
[~2023-05-05] VITALS: Ht 170.2 cm; Wt 129.7 kg
[2023-05-05 08:55] VITALS: TEMP 97
[2023-05-05] MEDS ORDERED: FLUC150T9 (09:01)
[2023-05-05] MEDS ORDERED: GLIP5TAB20 (09:01)
[2023-05-05] MEDS ORDERED: PIOG1TAB37 (09:01)
[2023-05-05] MEDS ORDERED: VITA100093 (09:01)
[2023-05-05 11:20] VITALS: BP 142/89; O2SAT 99
== END 2023-05-05 11:20 | disposition home or self-care (01) ==
LOC: M ED 08:55
DX: S93.401A Sprain of unspecified ligament of right ankle, initial encounter (principal); Y92.019 Unspecified place in single-family (private) house as the place of occurrence of the external cause; Y93.9 Activity, unspecified; Y99.9 Unspecified external cause status; I10 Essential (primary) hypertension; E11.9 Type 2 diabetes mellitus without complications; F17.290 Nicotine dependence, other tobacco product, uncomplicated; Z79.899 Other long term (current) drug therapy; Z79.84 Long term (current) use of oral hypoglycemic drugs

== ENCOUNTER → 2023-06-02 | Outpatient (CLI) | payer OTHER ==
[~2023-06-02] MED LIST changes: +FLUC150T9; +GLIP5TAB20; +PIOG1TAB37; +VITA100093
== END ==
LOC: M RAD 14:24
PROVIDERS: ATTEND Otolaryngology
DX: D44.0 Neoplasm of uncertain behavior of thyroid gland (principal)

== ENCOUNTER → 2023-07-07 | Outpatient (REF) | payer OTHER ==
[2023-07-07 18:36] LABS: CREATININE, URINE 62.2 MG/DL; MAU/CREAT RATIO 4.8 MCG/MG (0.0-30.0)
[2023-07-07 18:47] LABS: HEMOGLOBIN A1c 6.8 % (4.0-6.0)
[2023-07-07 18:50] LABS: ALBUMIN 3.2 G/DL (3.2-5.2); ALKALINE PHOSPHATASE 68 U/L (46-116); ALT/SGPT 17 U/L (7.0-40); AST/SGOT < 8 U/L (<34); BILIRUBIN,TOTAL 0.4 MG/DL (0.3-1.2); BLOOD UREA NITROGEN 14 MG/DL (9-23); CALCIUM LEVEL 9.2 MG/DL (8.5-10.1); CARBON DIOXIDE LEVEL 30 MMOL/L (20-31); CHLORIDE LEVEL 102 MMOL/L (98-107); CREATININE FOR GFR 0.65 MG/DL (0.55-1.30); GLOMERULAR FILTRATION RATE > 60.0 (>58); GLUCOSE, FASTING 121 MG/DL (60-100); SODIUM LEVEL 137 MMOL/L (136-145); TOTAL PROTEIN 6.7 G/DL (5.7-8.2)
== END ==
LOC: M LAB REF 17:45
PROVIDERS: ATTEND Pediatrics
DX: E11.69 Type 2 diabetes mellitus with other specified complication (principal)

== ENCOUNTER → 2023-11-11 | Outpatient (REF) | payer OTHER ==
[~2023-11-11] MED LIST changes: +NORE-30 PO; -NORE1TAB86 PO
[2023-11-11 17:31] LABS: ALBUMIN 3.7 G/DL (3.2-5.2); ALKALINE PHOSPHATASE 73 U/L (46-116); ALT/SGPT 17 U/L (7.0-40); AST/SGOT 12 U/L (<34); BILIRUBIN,TOTAL 0.4 MG/DL (0.3-1.2); BLOOD UREA NITROGEN 13 MG/DL (9-23); CALCIUM LEVEL 9.7 MG/DL (8.5-10.1); CARBON DIOXIDE LEVEL 30 MMOL/L (20-31); CHLORIDE LEVEL 100 MMOL/L (98-107); CREATININE FOR GFR 0.68 MG/DL (0.55-1.30); GLOMERULAR FILTRATION RATE > 60.0 (>58); GLUCOSE, FASTING 143 MG/DL (60-100); SODIUM LEVEL 135 MMOL/L (136-145); TOTAL PROTEIN 7.2 G/DL (5.7-8.2)
[2023-11-11 17:33] LABS: THYROID STIMULATING HORMONE 2.691 uIU/ML (0.55-4.78)
[2023-11-11 17:40] LABS: HEMOGLOBIN A1c 5.7 % (4.0-6.0)
== END ==
LOC: M LAB REF 16:33
PROVIDERS: ATTEND Pediatrics
DX: E11.69 Type 2 diabetes mellitus with other specified complication (principal)

== ENCOUNTER → 2025-01-14 | Outpatient (REF) | payer OTHER ==
[~2025-01-14] MED LIST changes: -BRIM1OPD OU; +BRIM5DRO25 OU; +GLIP-318; -GLIP5TAB20; -IBUP-1022 PO; +IBUP600T42 PO
[2025-01-15 13:23] LABS: CREATININE, URINE 47.4 MG/DL; MALB URINE SIEMENS < 3.0 MG/L
[2025-01-15 13:42] LABS: ALT/SGPT 16 U/L (7.0-40); AST/SGOT 11 U/L (<34); CALCIUM LEVEL 9.4 MG/DL (8.5-10.1); CARBON DIOXIDE LEVEL 30 MMOL/L (20-31); CHLORIDE LEVEL 97 MMOL/L (98-107); CHOLESTEROL LEVEL 159 MG/DL (<200); CHOLESTEROL RISK RATIO 2.90 (<5); CREATININE FOR GFR 0.64 MG/DL (0.55-1.30); GLOMERULAR FILTRATION RATE > 90.0 (>58); LDL CHOLESTEROL 86.7 MG/DL (<100); NON-HDL-C 104.3 MG/DL; POTASSIUM SERUM 3.6 MMOL/L (3.5-5.1); SODIUM LEVEL 137 MMOL/L (136-145); TRIGLYCERIDES LEVEL 88 MG/DL (<150)
[2025-01-15 13:46] LABS: TOTAL 25(OH) VITAMIN D 35.6 NG/ML (20.0-100.0)
[2025-01-15 14:21] LABS: ESTIMATED AVERAGE GLUCOSE 117.0 MG/DL (60-110)
== END ==
LOC: M LAB REF 12:15
PROVIDERS: ATTEND Pediatrics
DX: E11.69 Type 2 diabetes mellitus with other specified complication (principal); E55.9 Vitamin D deficiency, unspecified

== ENCOUNTER → 2025-02-20 | Outpatient (CLI) | payer OTHER | LOC: M WHC 08:48 | PROVIDERS: ATTEND Physician Assistant | DX: Z12.31 Encounter for screening mammogram for malignant neoplasm of breast (principal); R92.313 Mammographic fatty tissue density, bilateral breasts ==

== ENCOUNTER → 2025-02-20 | Outpatient (CLI) | payer OTHER ==
[2025-02-20 13:19] LABS: PROLACTIN 4.23 NG/ML
[2025-02-20 13:21] LABS: ESTRADIOL 27.6 PG/ML; LUTEINIZING HORMONE 9.8 mIU/ML
[2025-02-20 14:28] LABS: Trichomonas vaginalis (AMP) NOT DETECTED (NEGATIVE)
[2025-02-20 14:52] LABS: GC DNA AMPLIFICATION NEGATIVE (NEGATIVE)
[2025-02-21 06:24] LABS: SEX HORMONE BINDING GLOBULIN 48.0 nmol/L (17-124)
[2025-02-23 18:22] LABS: ANTI MULLERIAN HORMONE 0.05 ng/mL (NOT ESTABLISHED)
[2025-02-26 11:42] LABS: HPV APTIMA Not Detected (Not Detected)
[2025-02-26 12:02] LABS: TESTOSTERONE FREE (DIRECT) 1.3 pg/mL (0.1-6.4); TESTOSTERONE TOTAL FOR T&D 14.0 ng/dL (2-45)
== END ==
LOC: M PLALAB 10:00
PROVIDERS: ATTEND Physician Assistant
DX: Z12.4 Encounter for screening for malignant neoplasm of cervix (principal); N91.2 Amenorrhea, unspecified; N89.8 Other specified noninflammatory disorders of vagina